=== PATIENT | female | born 1975 | race Caucasian/White ===

== ENCOUNTER 2020-10-22 13:01 | Observation (INO) ==
[2020-10-22] MEDS ORDERED: Mag Hydrox/Al Hydrox/Simeth 30 ML UDC PO PRN (15:48)
[2020-10-22] MEDS ORDERED: Melatonin 3 MG TABLET PO PRN (15:48)
[2020-10-22] MEDS ORDERED: Naloxone 0.4 MG/ML INJ IVP PRN (15:48)
[2020-10-22] MEDS ORDERED: Ondansetron ODT 4 MG TAB.RAPDIS SL PRN (15:48)
[2020-10-22] MEDS: 0.9 % Sodium Chloride 1,000 ML IVC SCH (16:24)
[2020-10-22] MEDS ORDERED: Acetaminophen 325 MG TABLET PO PRN (20:56)
[2020-10-23] MEDS: Nicotine 21 MG PATCH.TD24 TD SCH ×2 (00:15→08:40)
[2020-10-23 02:33] LABS: Basophils # 0.1 K/mcL (0.0-0.2); Basophils % 0.6 %; Eosinophils # 0.3 K/mcL (0.0-0.6); Eosinophils % 3.1 %; Hematocrit 37.1 % (35.3-44.9); Hemoglobin 12.3 g/dL (11.5-15.4); Immature Granulocytes % 0.2 % (0-4); Mean Corpuscular HGB Conc 33.2 g/dL (31.6-35.5); Mean Corpuscular Hemoglobin 31.7 pg (28.0-33.3); Mean Corpuscular Volume 95.6 fL (83.0-100.0); Mean Platelet Volume 9.7 fL (9.4-12.4); Monocytes # 0.9 K/mcL (0.0-1.3); Monocytes % 8.8 %; Neutrophils # 4.7 K/mcL (1.6-8.9); Platelet Count 272 K/mcL (140-400); Red Blood Count 3.88 M/mcL (3.82-4.97); Red Cell Distribution Width 13.7 % (11.5-14.5); Segmented Neutrophils % 47.3 %; White Blood Count 9.9 K/mcL (4.3-11.1)
[2020-10-23 02:53] LABS: BUN/Creatinine Ratio 13 (6-26); Blood Urea Nitrogen 13 mg/dL (6-20); Calcium 8.8 mg/dL (8.6-10.3); Carbon Dioxide 24 mEq/L (23-29); Chloride 110 mEq/L (98-107); Glucose 85 mg/dL (70-105); Osmolality,Calculated 289 (280-300); Potassium 3.7 mEq/L (3.5-5.1); Sodium 140 mEq/L (136-145); eGFR For African Americans > 60 (> 60); eGFR For Non-African Americans > 60 (> 60)
[2020-10-23] MEDS: 0.9 % Sodium Chloride 1,000 ML IVC SCH (04:10)
[2020-10-23] MEDS ORDERED: *HR* Midazolam HCl 2 MG/2 ML VIAL ONE (09:07)
[2020-10-23] MEDS ORDERED: *HR* Propofol 200 MG/20 ML VIAL IVP ONE (09:07)
[2020-10-23] MEDS ORDERED: *HR* FentaNYL (PF) 100 MCG/2 ML VIAL ONE (09:07)
[2020-10-23] MEDS ORDERED: *HR* FentaNYL (PF) 100 MCG/2 ML VIAL IVP PRN (09:53)
[2020-10-23] MEDS ORDERED: Albuterol 2.5 MG/3 ML NEBULIZER IH PRN (09:53)
[2020-10-23] MEDS ORDERED: Nitroglycerin 0.4 MG TAB.SUBL SL PRN (09:53)
[2020-10-23] MEDS ORDERED: *HR* HYDROmorphone (PF) 1 MG/ML SYRINGE IVP PRN (09:53)
[2020-10-23] MEDS ORDERED: Ondansetron 4 MG/2 ML VIAL IVP PRN (09:53)
[2020-10-23] MEDS ORDERED: Naloxone 0.4 MG/ML INJ IVP PRN ×2 (09:53→13:15)
[2020-10-23] MEDS ORDERED: Isovue-300 50ML VIAL ONE (10:10)
[2020-10-23] MEDS ORDERED: Acetaminophen IV 1,000 MG/100 ML BAG IVPB ONE (10:28)
[2020-10-23] MEDS ORDERED: Ondansetron 4 MG/2 ML VIAL ONE (10:54)
[2020-10-23] MEDS ORDERED: Lidocaine -MPF 2% 2 ML VIAL ONE (10:54)
[2020-10-23] MEDS ORDERED: Acetaminophen 325 MG TABLET PO PRN (13:15)
[2020-10-23] MEDS ORDERED: Mag Hydrox/Al Hydrox/Simeth 30 ML UDC PO PRN (13:15)
[2020-10-23] MEDS ORDERED: Melatonin 3 MG TABLET PO PRN (13:15)
[2020-10-23] MEDS ORDERED: Ondansetron ODT 4 MG TAB.RAPDIS SL PRN (13:15)
[2020-10-23 14:13] VITALS: TEMP 97.8
[2020-10-23 14:14] VITALS: BP 125/84; PULSE 56; O2SAT 95
[2020-10-24] MEDS ORDERED: Nicotine 21 MG PATCH.TD24 TD SCH (09:00)
[2020-10-28 18:48] LABS: Calculi Mass 38 mg
== END 2020-10-23 14:46 | disposition home or self-care (01) ==
LOC: 3BNU → SUATTDRO 15:29
PROVIDERS: ADMIT Family Medicine; ATTEND Family Medicine